=== PATIENT | male | born 1995 ===

== ENCOUNTER 2022-02-17 13:04 | Emergency (ER) | payer BC ==
[~2022-02-17] VITALS: Ht 168 cm; Wt 145.0 kg
[2022-02-17 13:11] VITALS: BP 141/83
--- NOTE | 2022-02-17 13:45 | ED Integumentary General ---
General Chief Complaint: Skin/Wound Problems Stated Complaint: RASH Source: patient Exam Limitations: no limitations (KIRBY BYERS) History of Present Illness Date Seen by Provider: February 17, 2022 Time Seen by Provider: 13:41 Initial Comments Patient is a 26-year-old male with a history of HIV, diabetes who presents to the ED with a rash to the right side of his chest and back. Started on Friday with burning sensation to the right arm and right chest. Started having a pain in his back described as sharp and thought this was related to a pinched nerve. Patient noted a diffuse red vesicular rash over the past 2 days. Reports continues burning sensation. Patient states he is also currently on Bactrim and metformin. States his CD4 count is 273 last drawn in November. He has no cough, fever, chills, nausea vomiting, diarrhea. (KIRBY BYERS) Allergies and Home Medications Patient Home Medication List Home Medication List Reviewed: Yes (KIRBY BYERS) Acyclovir (Acyclovir) 800 Mg Tablet, 800 MG PO 5XD Prescribed by: KELSEY ROBBINS on 02/17/22 1346 Gabapentin (Neurontin) 300 Mg Capsule, 300 MG PO TID Prescribed by: KELSEY ROBBINS on 02/17/22 1346 Review of Systems Review of Systems Constitutional: No chills, No diaphoresis, No malaise, No weakness EENTM: No hearing loss, No blurred vision, No double vision Respiratory: No cough Cardiovascular: No chest pain, No palpitations Genitourinary: No decreased output, No discharge Musculoskeletal: No back pain, No joint pain; muscle pain Skin: pruritus, rash (KIRBY BYERS) All Other Systems Reviewed Negative Unless Noted: Yes (KIRBY BYERS) Physical Exam Vital Signs Vital Signs - First Documented 02/17/22 13:11 Temp 35.4 Pulse 111 Resp 18 B/P (MAP) 141/83 (102) Pulse Ox 98 O2 Delivery Room Air (JULITA AGUILAR MD) Vital Signs Capillary Refill : (KIRBY BYERS) General Appearance: WD/WN, no apparent distress HEENT: PERRL/EOMI, normal ENT inspection, TMs normal Neck: non-tender, full range of motion, supple, normal inspection Cardiovascular: regular rate, rhythm, no edema, no gallop Respiratory: lungs clear, normal breath sounds, no respiratory distress, no accessory muscle use Gastrointestinal: normal bowel sounds, non tender, soft Back: no vertebral tenderness Extremities: normal range of motion, non-tender, normal inspection, no pedal edema 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 No purulent drainage. No bruising. No active drainage) (KIRBY BYERS) Progress/Results/Core Measures Results/Orders Vital Signs/I&O 02/17/22 13:11 Temp 35.4 Pulse 111 Resp 18 B/P (MAP) 141/83 (102) Pulse Ox 98 O2 Delivery Room Air (JULITA AGUILAR MD) Departure Communication (PCP) Patient with a history of HIV. Currently on biktarvy and Bactrim. Currently being managed by his primary care physician in [place]. Recent CD4 count was 273. He has no other complaints besides this rash. Appears to be shingles on exam. No secondary cellulitis. Due to his current health history will discharge with acyclovir for 10 days. Will prescribe gabapentin for the burning sensation type pain that he is experiencing. I strongly recommend follow-up with his primary care physician in the next 1 to 2 days discussed further evalua tion. He does not appear toxic or septic but due to his HIV and current CD4 count may need further intervention. Patient will call his primary care physician tomorrow. Anti-inflammatories for pain. If any worsening symptoms return back to ED for further evaluation. (KIRBY BYERS) Impression Primary Impression: Shingles Disposition: 01 HOME, SELF-CARE Condition: Stable Departure-Patient Inst. Decision time for Depature: 13:44 (KIRBY BYERS) Referrals: NO,LOCAL PHYSICIAN (PCP/Family) Primary Care Physician Patient Instructions: Shingles (DC) Scripts Gabapentin (Neurontin) 300 Mg Capsule 300 MG PO TID for 7 Days, #21 CAP Prov: KIRBY BYERS 02/17/22 Acyclovir (Acyclovir) 800 Mg Tablet 800 MG PO 5XD for 10 Days, #50 TAB Prov: KIRBY BYERS 02/17/22 ATTENDING PHYSICIAN NOTE: I was physically present as attending physician in the emergency department during the care of this patient, but I was not directly involved in the decision making or delivery of care for this patient. (JULITA AGUILAR MD) KIRBY BYERS February 17, 2022 13:45 JULITA AGUILAR MD February 17, 2022 20:19
[2022-02-17] MEDS ORDERED: ACYC-112 PO (13:46)
[2022-02-17] MEDS ORDERED: GABA300C PO (13:46)
== END 2022-02-17 13:50 | disposition home or self-care (01) ==
LOC: ER 13:07
DX: B02.9 Zoster without complications (principal); E11.9 Type 2 diabetes mellitus without complications; Z21 Asymptomatic human immunodeficiency virus [HIV] infection status; Z79.84 Long term (current) use of oral hypoglycemic drugs
CPT/HCPCS: 99281

== ENCOUNTER 2023-01-18 20:33 | Emergency (ER) | payer BC ==
[~2023-01-18] VITALS: Ht 167 cm; Wt 141.0 kg
[~2023-01-18 20:33] MED LIST: ACYC-112 PO; GABA300C PO
--- NOTE | 2023-01-18 20:50 | ED EENT ---
History of Present Illness General Chief Complaint: Oral/Throat Problems Stated Complaint: SORE THROAT Source: patient Exam Limitations: no limitations History of Present Illness Date Seen by Provider: Jan 18, 2023 Time Seen by Provider: 20:38 Initial Comments 27-year-old male presents the ED with complaints of sore throat for the last month. He reports he is also had a runny nose for 1 month. He has not seen his primary care provider regarding this. States he came in tonight because pain was unbearable. He reports feeling feverish on and off. Reports mild bilateral ear pain. Past medical history includes diabetes type 2, and HIV. Reports his last CD4 counts was 471 which was drawn in October. Allergies and Home Medications Allergies Coded Allergies: No Known Drug Allergies (Unverified , 01/18/23) Patient Home Medication List Home Medication List Reviewed: Yes Acyclovir (Acyclovir) 800 Mg Tablet, 800 MG PO 5XD Prescribed by: KELSEY ROBBINS on 02/17/22 1346 Amoxicillin (Amoxicillin) 500 Mg Tablet, 500 MG PO BID Prescribed by: Wanda Escobar on 01/18/232058 Gabapentin (Neurontin) 300 Mg Capsule, 300 MG PO TID Prescribed by: KELSEY ROBBINS on 02/17/22 1346 Review of Systems Review of Systems Constitutional: no symptoms reported Nose: congestion Throat: pain Past Ughvsti-Ylygxk-Lxaove Hx Immunizations Up To Date First/Initial COVID19 Vaccinat: OCT 2020 Second COVID19 Vaccination Reji: DECEMBER 2020 Third COVID19 Vaccination Date: AUG 2021 Past Medical History Surgery/Hospitalization HX: HIV, DM 2 Physical Exam Vital Signs Vital Signs - First Documented 01/18/23 20:45 Pulse 94 Resp 16 B/P (MAP) 129/92 (104) Pulse Ox 98 O2 Delivery Room Air Height, Weight, BMI Height: '" Weight: lbs. oz. kg; 51.00 BMI Method: General Appearance: WD/WN, no apparent distress Mouth/Throat: No tongue swollen; tonsillar exudate, tonsillar swelling; No trismus, No uvula swelling, No voice changes; other (Tonsils do not appear erythemic) Neck: supple, normal inspection Cardiovascular: regular rate, rhythm Respiratory: lungs clear, normal breath sounds, no respiratory distress, no accessory muscle use Neurologic/Psychiatric: alert, normal mood/affect Skin: normal color, warm/dry Progress/Results/Core Measures Results/Orders Lab Results Laboratory Tests Test 01/18/23 20:40 Range/Units Group A Streptococcus Screen NEGATIVE NEGATIVE Micro Results Microbiology 01/18/23 Throat Culture - Preliminary, Resulted No Beta Strep isolated My Orders Orders - WANDA ESCOBAR APRN Rapid Strep A Screen (01/18/23 20:35) Throat Culture Strep A Confirm (01/18/23 20:40) Amoxicillin Capsule (Polymox Capsule) (01/18/23 21:00) Vital Signs/I&O Progress Progress Note : Time: 20:50 Progress Note Patient seen and evaluated, resting comfortably in recliner, no acute distress. Based on exam and symptoms, will obtain rapid strep swab. 2056 rapid strep negative. Will go ahead and treat due to tonsil swelling and exudate. Results discussed with patient. Discharge instructions and return precautions provided. Departure Impression Primary Impression: Pharyngitis Disposition: HOME, SELF-CARE Condition: Stable Departure-Patient Inst. Referrals: RADHA GUTIERRES MD (PCP/Family) Primary Care Physician Patient Instructions: Strep Throat (DC) Add. Discharge Instructions: Complete full course of antibiotic as directed, even if you been to feel better. Call your primary care provider on Friday to schedule a follow-up appointment for this week. Return for worsening or uncontrolled pain, tongue swelling, difficulty swallowing, change in voice, difficulty breathing, fevers greater than 100.4, recurrent vomiting, or any other new, concerning, or worsening symptoms. All discharge instructions reviewed with patient and/or family. Voiced understanding. Scripts Amoxicillin (Amoxicillin) 500 Mg Tablet 500 MG PO BID for 10 Days, #20 TAB 0 Refills Prov: WANDA ESCOBAR APRN 01/18/23 WANDA ESCOBAR APRN Jan 18, 2023 20:50
[2023-01-18] MEDS ORDERED: AMOX500T2 PO (20:59)
[2023-01-18] MEDS ORDERED: AMOXICILLIN 500 MG (POLYMOX) CAP PO ONE (21:00)
[2023-01-18 21:09] VITALS: BP 129/92
== END 2023-01-18 21:10 | disposition home or self-care (01) ==
LOC: EDUNIT# 20:33 → ER 20:36
DX: J02.9 Acute pharyngitis, unspecified (principal)
CPT/HCPCS: 87430; 99283

== ENCOUNTER 2023-09-06 18:54 | Emergency (ER) | payer SELFPAY ==
[~2023-09-06] VITALS: Ht 167.7 cm; Wt 145.0 kg
[~2023-09-06 18:54] MED LIST changes: +AMOX500T2 PO
[2023-09-06] MEDS ORDERED: SUCRALFATE 1 GM TABLET PO ONE (19:30)
[2023-09-06] MEDS ORDERED: ANTACID SUSPENSION 30 ML UDC PO ONE (19:30)
[2023-09-06] MEDS ORDERED: LIDOCAINE 2% VISCOUS 15 ML UDC PO ONE (19:30)
--- NOTE | 2023-09-06 19:59 | Diagnostic Imaging Report ---
INDICATION: Epigastric pain and vomiting. COMPARISON: Prior examination from 11/21/2022. FINDINGS: The heart size, mediastinal configuration and pulmonary vascularity are within normal limits. There is no pleural effusion, pneumothorax or pneumonia. The osseous structures are unremarkable. IMPRESSION: No acute cardiopulmonary abnormality. Dictated by: Dictated on workstation # [id number]
[2023-09-06 20:01] LABS: BASOPHILS % (AUTO) 1 % (0-10); EOSINOPHILS # (AUTO) 0.2 10^3/uL (0.0-0.3); EOSINOPHILS % (AUTO) 3 % (0-10); HEMATOCRIT 41 % (40-54); HEMOGLOBIN 13.8 g/dL (13.3-17.7); LYMPHOCYTES % (AUTO) 27 % (12-44); MEAN CORPUSCULAR HEMOGLOBIN 27 pg (25-34); MEAN CORPUSCULAR HGB CONC 34 g/dL (32-36); MEAN CORPUSCULAR VOLUME 79 fL (80-99); MEAN PLATELET VOLUME 8.8 fL (9.0-12.2); MONOCYTES # (AUTO) 0.5 10^3/uL (0.0-1.0); MONOCYTES % (AUTO) 7 % (0-12); NEUTROPHILS # (AUTO) 4.9 10^3/uL (1.8-7.8); NEUTROPHILS % (AUTO) 64 % (42-75); PLATELET COUNT 259 10^3/uL (130-400); WHITE BLOOD COUNT 7.7 10^3/uL (4.3-11.0)
[2023-09-06 20:21] LABS: BILIRUBIN,TOTAL 0.3 MG/DL (0.1-1.0); CALCIUM 9.5 MG/DL (8.5-10.1); CREATININE SERUM 0.81 MG/DL (0.60-1.30); POTASSIUM 3.4 MMOL/L (3.6-5.0); TOTAL PROTEIN 8.7 GM/DL (6.4-8.2)
[2023-09-06] MEDS ORDERED: NS IV 1000 ML 1,000 ML IV STA (20:59)
[2023-09-06] MEDS ORDERED: KETOROLAC INJ 15 MG/ML VIAL IVP ONE (22:30)
--- NOTE | 2023-09-06 22:57 | ED Abdominal Pain ---
General Chief Complaint: Abdominal/GI Problems Stated Complaint: AB PAIN Nursing Triage Note: PT AMB TO RM 2 WITH C/O MID ABD PAIN UNDER RIBS SINCE FRIDAY. PT THINKS HE MIGHT BE CONSTIPATED Source of Information: Patient Exam Limitations: No Limitations History of Present Illness Date Seen by Provider: Sep 06, 2023 Time Seen by Provider: 19:00 Initial Comments 28-year-old male who is HIV positive presents the emergency department today for epigastric abdominal pain. Symptoms started on Friday and have progressed to now become constant whereas they were initially intermittent. It is sharp stabbing with radiation to his mid back. No fevers chills nausea or vomiting. He thought he might be constipated so he took some stool softeners [id number] which have not really helped. He has had a bowel movement last 2 days. He states he drank alcohol on Friday but does not drink regularly and did not drink in excess. No urinary symptoms. He has not had any surgeries. All other systems reviewed and negative except documented per HPI. Voice recognition software was used to help create this chart Allergies and Home Medications Allergies Coded Allergies: No Known Drug Allergies (Unverified , 01/18/23) Patient Home Medication List Home Medication List Reviewed: Yes Acyclovir (Acyclovir) 800 Mg Tablet, 800 MG PO 5XD Prescribed by: KELSEY ROBBINS on 02/17/22 1346 Amoxicillin (Amoxicillin) 500 Mg Tablet, 500 MG PO BID Prescribed by: Wanda Escobar on 01/18/232058 Gabapentin (Neurontin) 300 Mg Capsule, 300 MG PO TID Prescribed by: KELSEY ROBBINS on 02/17/22 1346 Ketorolac Tromethamine (Ketorolac Tromethamine) 10 Mg Tablet, 10 MG PO TID Prescribed by: GERMAN DUDLEY MD on 09/06/23 9261 Review of Systems Review of Systems Constitutional: see HPI Past Ebyttks-Nllbby-Urhvci Hx Patient Social History Tobacco Use?: No Use of E-Cig and/or Vaping dev: No Substance use?: No Alcohol Use?: No Pt feels they are or have been: No Immunizations Up To Date First/Initial COVID19 Vaccinat: OCT 2020 Second COVID19 Vaccination Reji: DECEMBER 2020 Third COVID19 Vaccination Date: AUG 2021 Past Medical History Surgery/Hospitalization HX: HIV, DM 2, HLD Physical Exam Vital Signs Vital Signs - First Documented 09/06/23 19:13 Temp 36.9 Pulse 107 Resp 20 B/P (MAP) 142/98 (113) Pulse Ox 98 O2 Delivery Room Air Capillary Refill : Height/Weight/BMI Height: '" Weight: lbs. oz. kg; 51.00 BMI Method: General Appearance: WD/WN, no apparent distress HEENT: normal ENT inspection, pharynx normal Respiratory: chest non-tender, lungs clear, normal breath sounds, no respiratory distress, no accessory muscle use Cardiovascular: regular rate, rhythm, no murmur Gastrointestinal: normal bowel sounds, soft, no organomegaly, tenderness ( Tenderness palpation of the epigastric region with voluntary guarding. No rebound tenderness. No mass organomegaly. No skin changes.) Neurologic/Psychiatric: alert, oriented x 3 Skin: normal color, warm/dry Progress/Results/Core Measures Results/Orders Lab Results Laboratory Tests Test 09/06/23 19:48 Range/Units White Blood Count 7.7 4.3-11.0 10^3/uL Red Blood Count 5.19 4.30-5.52 10^6/uL Hemoglobin 13.8 13.3-17.7 g/dL Hematocrit 41 40-54 % Mean Corpuscular Volume 79 L 80-99 fL Mean Corpuscular Hemoglobin 27 25-34 pg Mean Corpuscular Hemoglobin Concent 34 32-36 g/dL Red Cell Distribution Width 12.8 10.0-14.5 % Platelet Count 259 130-400 10^3/uL Mean Platelet Volume 8.8 L 9.0-12.2 fL Immature Granulocyte % (Auto) 0 % Neutrophils (%) (Auto) 64 42-75 % Lymphocytes (%) (Auto) 27 12-44 % Monocytes (%) (Auto) 7 0-12 % Eosinophils (%) (Auto) 3 0-10 % Basophils (%) (Auto) 1 0-10 % Neutrophils # (Auto) 4.9 1.8-7.8 10^3/uL Lymphocytes # (Auto) 2.0 1.0-4.0 10^3/uL Monocytes # (Auto) 0.5 0.0-1.0 10^3/uL Eosinophils # (Auto) 0.2 0.0-0.3 10^3/uL Basophils # (Auto) 0.0 0.0-0.1 10^3/uL Immature Granulocyte # (Auto) 0.0 0.0-0.1 10^3/uL Sodium Level 134 L 135-145 MMOL/L Potassium Level 3.4 L 3.6-5.0 MMOL/L Chloride Level 101 98-107 MMOL/L Carbon Dioxide Level 21 21-32 MMOL/L Anion Gap 12 5-14 MMOL/L Blood Urea Nitrogen 15 7-18 MG/DL Creatinine 0.81 0.60-1.30 MG/DL Estimat Glomerular Filtration Rate 122 BUN/Creatinine Ratio 19 Glucose Level 264 H 70-105 MG/DL Calcium Level 9.5 8.5-10.1 MG/DL Corrected Calcium 9.5 8.5-10.1 MG/DL Total Bilirubin 0.3 0.1-1.0 MG/DL Aspartate Amino Transf (AST/SGOT) 20 5-34 U/L Alanine Aminotransferase (ALT/SGPT) 52 0-55 U/L Alkaline Phosphatase 140 H 40-136 U/L Total Protein 8.7 H 6.4-8.2 GM/DL Albumin 4.0 3.2-4.5 GM/DL Lipase 1468 H 8-78 U/L My Orders Orders - GERMAN DUDLEY DO Comprehensive Metabolic Panel (09/06/23 19:25) Lipase (09/06/23 19:25) Ua Culture If Indicated (09/06/23 19:25) Cbc And Automated Diff (09/06/23 19:25) Sucralfate Tablet (Sucralfate Tablet) (09/06/23 19:30) Lidocaine 2% Viscous 15 Ml (Xylocaine Vi (09/06/23 19:30) Antacid Suspension (Antacid Suspension (09/06/23 19:30) Chest 1 View, Ap/Pa Only (09/06/23 19:25) Ed Iv/Invasive Line Start (09/06/23 20:59) Ns Iv 1000 Ml (Ns Iv 1000 Ml) (09/06/23 20:59) Ketorolac Injection (Ketorolac Injection (09/06/23 22:30) Medications Given in ED Current Medications Medications Dose Ordered Sig/Cee Route Start Time Stop Time Status Last Admin Dose Admin Al Hydrox/Mg Hydrox/Simethicone 30 ml ONCE ONCE PO 09/06/23 19:30 09/06/23 19:31 DC 09/06/23 19:35 30 ML Ketorolac Tromethamine 15 mg ONCE ONCE IVP 09/06/23 22:30 09/06/23 22:31 DC 09/06/23 22:34 15 MG Lidocaine HCl 5 ml ONCE ONCE PO 09/06/23 19:30 09/06/23 19:31 DC 09/06/23 19:35 5 ML Sucralfate 1 gm ONCE ONCE PO 09/06/23 19:30 09/06/23 19:31 DC 09/06/23 19:35 1 GM Vital Signs/I&O 09/06/23 19:13 Temp 36.9 Pulse 107 Resp 20 B/P (MAP) 142/98 (113) Pulse Ox 98 O2 Delivery Room Air Blood Pressure Mean: 113 Departure Communication (Admissions) Patient is hemodynamically stable with a nonsurgical abdominal exam. Initially concern for possible gastritis, ulcers. Given GI cocktail without much relief. Lipase is elevated at 1400. Alk phos is slightly elevated. He is afebrile with no leukocytosis, nontoxic. He is given IV fluids and Toradol. He states his pain is nearly gone at this time and is feeling dramatically better. I spoke with Dr. Neves who request to give the patient the option for outpatient treatment clear liquid diet and pain control versus admission to the hospital for pain control. He states he feels much better and wishes to trial outpatient management with p.o. Toradol and clear liquid diet. I gave him strict return precautions and gave him discharged with follow-up with Dr. Neves. He is given p.o. Toradol and discharge as well. Impression Primary Impression: Pancreatitis Qualified Codes: K85.90 - Acute pancreatitis without necrosis or infection, unspecified Disposition: 01 HOME, SELF-CARE Condition: Stable Departure-Patient Inst. Referrals: POOJA NEVES MD, JULIE A MD (PCP/Family) Primary Care Physician Patient Instructions: Acute pancreatitis Add. Discharge Instructions: Maintain a clear liquid diet for the next day or 2. If you can see through it can likely safely eat/drink it. Take the Toradol as prescribed as needed for pain. Do not take any other anti-inflammatory medicine such as Motrin ibuprofen Aleve or aspirin while taking this as it can cause ulcers. Do not take them on an empty stomach. Return to the emergency department for any severe pain is not controlled by the provided pain medications. Call Dr. Neves's office on Friday to schedule follow-up appointment. All discharge instructions reviewed with patient and/or family. Voiced understanding. Scripts Ketorolac Tromethamine (Ketorolac Tromethamine) 10 Mg Tablet 10 MG PO TID for Pain for 3 Days, #9 TAB Prov: GERAMN DUDLEY DO 09/06/23 GERMAN DUDLEY DO Sep 06, 2023 22:57
[2023-09-06] MEDS ORDERED: KETO10TA PO (22:59)
[2023-09-06 23:04] VITALS: BP 128/99
== END 2023-09-06 23:08 | disposition home or self-care (01) ==
LOC: EDUNIT# 18:54 → ER 18:57
DX: K85.90 Acute pancreatitis without necrosis or infection, unspecified (principal); Z21 Asymptomatic human immunodeficiency virus [HIV] infection status
CPT/HCPCS: 36415; 71045; 80053; 83690; 85025